=== PATIENT | male | born 1975 | race African-American/Black ===

== ENCOUNTER 2017-03-02 09:15 | Emergency (ER) | payer OTHER, MEDICARE ==
[~2017-03-02] VITALS: Ht 185.4 cm; Wt 181.4 kg
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
[~2017-03-02 09:15] MED LIST: AMOXICILLIN500 M1 PO; ASPIR-TRIN325 MG; KEFLEX PO; PREDNISONE PO; TYLOX 5/500 CAP1 CAP PO; ULTRAM PO
[2017-03-02 12:21] LABS: POC - CREATININE 0.97 mg/dL (0.64-1.27); POC - GFR >60.0 mL/min (>60)
== END 2017-03-02 13:35 | disposition home or self-care (01) ==
LOC: CFTX 09:15 → CED 09:15 → CFTX 10:38
PROVIDERS: Physician Assistant
DX: S33.5XXA Sprain of ligaments of lumbar spine, initial encounter (principal); S23.3XXA Sprain of ligaments of thoracic spine, initial encounter; S46.912A Strain of unspecified muscle, fascia and tendon at shoulder and upper arm level, left arm, initial encounter; S46.911A Strain of unspecified muscle, fascia and tendon at shoulder and upper arm level, right arm, initial encounter; I10 Essential (primary) hypertension; V49.40XA Driver injured in collision with unspecified motor vehicles in traffic accident, initial encounter; Y92.410 Unspecified street and highway as the place of occurrence of the external cause
CPT/HCPCS: 36415; 71101; 71260; 72072; 72100; 73030; 82565; 99284; Q9967